=== PATIENT | female | born 1940 | race Caucasian/White ===

== ENCOUNTER → 2016-06-16 16:57 | Outpatient (CLI) | payer MEDICARE, OTHER ==
[2015-04-08 07:12] VITALS: BMI 27.0
[~2016-06-16 16:57] MED LIST: BAYER ASPIRIN325 MG PO; CELEXA10 MG PO; PROTONIX40 MG PO; SYNTHROID100 MCG PO; XARELTO20 MG PO
== END | disposition home or self-care (01) ==
LOC: D.MAMMO 11:15
DX: Z12.31 Encounter for screening mammogram for malignant neoplasm of breast (principal)

== ENCOUNTER 2016-08-26 16:50 | Observation (INO) | payer MEDICARE, OTHER ==
[~2016-08-26] VITALS: Ht 170.2 cm; Wt 72.7 kg
--- NOTE | ~2016-08-26 | EC ---
PATIENT:STEFF MONCADA DATE OF SERVICE: 08/26/16 SEX: F MEDICAL RECORD: [id number] DATE OF : 39 LOCATION:D.MS Hunt223 AGE OF PATIENT: 75 ADMISSION DATE: 08/26/16 REFERRING PHYSICIAN: INTERPRETING PHYSICIAN: SONIA ROSE M.D. ECHOCARDIOGRAM REPORT ECHO CHARGES 4 ECHO COMPLETE CLINICAL DIAGNOSIS: SYNCOPE ECHOCARDIOGRAPHIC MEASUREMENTS (adult normal given) AC root (d.<3.7cm) 3.1 LV Septum d (<1.2 cm> 1.1 Valve Excursion 1.7 LV Septum (systole) 1.4 Left Atria (s.<4.0cm> 3.5 LVPW d(<1.2cm) 1.2 RV (d.<2.3cm) 2.7 LVPW (sytole) 1.6 LV diastole(<5.6CM) 5.7 MV E-F(>70mm/sec) LV systole 3.5 LVOT Diameter 1.6 MV exc.(>10mm) 1.4 Est.ejection fraction (50-75%) Pericardial Effusion N DOPPLER: LVIT A 101 E 89.0 LA RVSP 44 LVOT 122 AOP1/2T Asc. Ao 175 RVOT 87 RA PA 123 AV Gradient Peak 12.25 AV Mean 6.47 AV Area 1.5 MV Gradient Peak 5.28 MV Mean 2.0 MV Area COMMENTS: Physician Gynecologist: Fili ZUNIGA Commercial Insulator:Arin Marques TAPE# PACS DATE OF SERVICE: 08/27/2016 REFERRING PHYSICIAN: Tejas Abreu M.D. INDICATION: Syncope. DESCRIPTION: Left ventricle demonstrates left ventricular hypertrophy. No wall motion abnormalities are seen. Ejection fraction is 60%. Mitral valve is structurally normal. There is trivial regurgitation noted. Left atrium is normal in size. The aortic valve is trileaflet. There is no stenosis or ECHOCARDIOGRAM REPORT [id number] STEFF MONCADA regurgitation seen. Right ventricle is mildly dilated. Tricuspid valve is normal. There is mild to moderate regurgitation noted. Right ventricular systolic pressure is measured at 44 mmHg. There is no pericardial effusion seen. IMPRESSION: 1. Left ventricular hypertrophy with preserved ejection fraction of 60%. 2. Trivial mitral regurgitation. 3. Mild to moderate tricuspid regurgitation. TRANSINT:[id number] Voice Confirmation ID: [id number] DOCUMENT ID: [id number] SONAI ROSE M.D. CC: [id number] DICTATION DATE: 08/27/16 144 PERMIT SPECIALIST: 08/27/16 1659 ADM IN [id number] [place] [address]
[2016-08-26 17:06] LABS: BASOPHILS 0.2 % (0-2); EOSINOPHILS 0.6 % (0-7); HEMATOCRIT 39.2 % (36.0-48.0); HEMOGLOBIN 12.5 g/dL (12-16); IMMATURE GRANULOCYTES 0.4 % (0-5); LYMPHOCYTES 9.9 % (15-50); MCH 28.3 pg (26.0-34.0); MCHC 31.9 g/dL (31.0-37.0); MCV 88.7 fL (80.0-100.0); MEAN PLATELET VOLUME 11.6 fL (7.4-10.4); MONOCYTES 7.2 % (2-11); NEUTROPHILS 81.7 % (40-80); PLATELET COUNT 146 10x3/uL (130-400); RBC 4.42 10x6/uL (4.00-5.40); RDW 15.1 % (11.5-14.5); WBC 8.2 10x3/uL (4.8-10.8)
[2016-08-26 17:27] LABS: ALBUMIN 4.2 g/dL (3.4-5.0); ANION GAP 12.7 mmol/L (8-16); BILIRUBIN - TOTAL 0.37 mg/dL (0.2-1.3); CALCIUM 8.6 mg/dL (8.5-10.1); CREATININE - SERUM 1.6 mg/dL (0.6-1.3); POTASSIUM - SERUM 3.7 mmol/L (3.5-5.1); PROTEIN - SERUM 7.6 g/dL (6.4-8.2)
[2016-08-26 17:33] LABS: INR 1.12 (0.85-1.17); PROTIME 14.3 SECONDS (11.6-15.0)
[2016-08-26 17:34] LABS: APTT 30.8 SECONDS (22.8-39.4)
[2016-08-26 17:52] LABS: CKMB 1.6 U/L (0.0-3.6); CREATINE KINASE 191 UL (21-215)
[2016-08-26 18:06] LABS: TROPONIN-I < 0.017 ng/mL (0.000-0.060)
[2016-08-26] MEDS ORDERED: [UNRECOGNIZED DRUG - REMARK] (21:43)
[2016-08-26] MEDS ORDERED: ZOVIRAX800 MG (21:44)
[2016-08-26] MEDS ORDERED: PRINIVIL20 MG PO (21:44)
[2016-08-26] MEDS ORDERED: CORTISPORIN OTI10 M1 EACH EAR (21:44)
[2016-08-26] MEDS ORDERED: LYRICA75 MG PO (21:46)
[2016-08-26] MEDS ORDERED: FLUTICASONE PRO16 GM (21:47)
[2016-08-26] MEDS ORDERED: AUGMENTIN 500-11 TA1 (21:47)
[2016-08-26] MEDS ORDERED: LEVOTHYROXINE100 MCG (21:48)
[2016-08-26] MEDS ORDERED: CELEXA20 MG (21:49)
[2016-08-26] MEDS ORDERED: MEDROL DOSE PACK4 MG (21:52)
[2016-08-26] MEDS ORDERED: TESSALON PERLE100 MG (21:52)
[2016-08-26] MEDS ORDERED: MOBIC7.5 MG (21:53)
[2016-08-26] MEDS ORDERED: NORVASC10 MG (21:53)
[2016-08-26] MEDS ORDERED: MOBIC7.5 MG PO ×2 (21:54→21:55)
--- NOTE | 2016-08-26 22:14 | NUR ---
RECIEVED TO ROOM 2238.FROM ER VIA WHEELCHAIR, ALERT,ORIENTED X 3. NO DISTRESS NOTED. FAMILY AT BEDSIDE. CL IN REACH.
[2016-08-26 22:33] VITALS: BP 132/52; Ht 170.2 cm; Wt 72.7 kg
--- NOTE | 2016-08-26 22:43 | NUR ---
RN NOTE: ADMISSION ASSESSMENT COMPLETE PER FLOWSHEET. PT RESTING QUIETLY IN SEMI AMBROCIO'S POSITION. FAMILY MEMBER IS AT BEDSIDE. IV FLUIDS STARTED PER ORDER.
[2016-08-27] VITALS (7 sets, daily range): BP systolic 102–127; BP diastolic 34–82
--- NOTE | 2016-08-27 04:49 | NUR ---
UP WIHT ASIST TO BR. NO DISTRESS NOTED.
--- NOTE | 2016-08-27 08:07 | NUR ---
PT AOX4 RESP EVEN AND NONLABORED IV TO LEFT FOREARM PATENT AND INTACT SRX2 BED AT LOWEST SETTING CALL LIGHT WITHIN REACH WILL CONTINUE TO MONITOR PT DENIES NEEDS AT THIS TIME
[2016-08-27 10:33] LABS: BASOPHILS 0.2 % (0-2); HEMATOCRIT 34.4 % (36.0-48.0); IMMATURE GRANULOCYTES 0.2 % (0-5); LYMPHOCYTES 16.6 % (15-50); MCV 87.5 fL (80.0-100.0); MEAN PLATELET VOLUME 11.1 fL (7.4-10.4); PLATELET COUNT 130 10x3/uL (130-400); RBC 3.93 10x6/uL (4.00-5.40); RDW 15.1 % (11.5-14.5)
[2016-08-27 10:34] LABS: WBC 5.7 10x3/uL (4.8-10.8)
[2016-08-27 11:00] LABS: ALBUMIN 3.2 g/dL (3.4-5.0); ANION GAP 9.2 mmol/L (8-16); BILIRUBIN - TOTAL 0.35 mg/dL (0.2-1.3); CALCIUM 7.8 mg/dL (8.5-10.1); CARBON DIOXIDE 29.3 mmol/L (21.0-32.0); CREATININE - SERUM 1.4 mg/dL (0.6-1.3); POTASSIUM - SERUM 3.5 mmol/L (3.5-5.1); PROTEIN - SERUM 6.2 g/dL (6.4-8.2)
--- NOTE | 2016-08-27 19:15 | NUR ---
IV CAME OUT NEW 29 GAUGE IV TO RIGHT HAND WITHOUT DIFFULTY AT THIS TIME
--- NOTE | 2016-08-27 19:55 | NUR ---
PT LYING IN BED AWAKE, ASSESSMENT COMPLETED, NO ACUTE DISTRESS NOTED, DENIES NEEDS AT THIS TIME, SR'S UP, CL IN REACH, WILL MONITOR
--- NOTE | 2016-08-27 23:11 | NUR ---
MEDS GIVEN PER MAR, LIN WELL, DENIES NEEDS, CL IN REACH
--- NOTE | 2016-08-28 01:28 | NUR ---
RESTING WITH EYES CLOSED, RESP WITH EASE, NO ACUTE DISTRESS NOTED, SR'S UP, CL IN REACH
[2016-08-28 03:55] VITALS: BP 125/90
[2016-08-28 06:51] LABS: APPEARANCE CLEAR (CLEAR); BACTERIA FEW /hpf (NONE SEEN); BILIRUBIN NEGATIVE (NEGATIVE); COLOR STRAW (YELLOW); EPITHELIAL CELLS OCC /hpf (0-5); GLUCOSE NEGATIVE (NEGATIVE); KETONE NEGATIVE (NEGATIVE); LEUKOCYTE ESTERASE NEGATIVE (NEGATIVE); NITRITE NEGATIVE (NEGATIVE); PROTEIN NEGATIVE (NEGATIVE); RED CELLS - URINE 0-5 /hpf (0-5); UROBILINOGEN NORMAL (NORMAL); WHITE CELLS - URINE OCC /hpf (0-5)
--- NOTE | 2016-08-28 07:00 | NUR ---
PT REC'D FROM TITO LEWIS. RESTING IN BED AAOX4. NO COMPLAINTS OF PAIN. HAND ROCK LATHER AND FOOT PUMPS STRONG AND EQUAL BILAT. REGULAR HEART RATE AND RHYTHM. +2 PEDAL PULSES. PIV TO R HAND FREE OF REDNESS AND SWELLING. BED LOW, CALL LIGHT IN REACH, DENIES NEEDS. CPOC.
[2016-08-28 07:24] LABS: BASOPHILS 0.5 % (0-2); EOSINOPHILS 2.5 % (0-7); HEMATOCRIT 35.2 % (36.0-48.0); HEMOGLOBIN 11.4 g/dL (12-16); IMMATURE GRANULOCYTES 0.5 % (0-5); LYMPHOCYTES 23.4 % (15-50); MCH 28.5 pg (26.0-34.0); MCHC 32.4 g/dL (31.0-37.0); MEAN PLATELET VOLUME 11.4 fL (7.4-10.4); MONOCYTES 9.3 % (2-11); NEUTROPHILS 63.8 % (40-80); PLATELET COUNT 131 10x3/uL (130-400); RDW 14.9 % (11.5-14.5)
[2016-08-28 08:12] LABS: ALBUMIN 3.2 g/dL (3.4-5.0); ANION GAP 7.6 mmol/L (8-16); BILIRUBIN - TOTAL 0.42 mg/dL (0.2-1.3); CALCIUM 7.9 mg/dL (8.5-10.1); CARBON DIOXIDE 29.1 mmol/L (21.0-32.0); CHOL - HDL RATIO 4.4 ratio (2.3-4.1); CREATININE - SERUM 1.2 mg/dL (0.6-1.3); POTASSIUM - SERUM 3.7 mmol/L (3.5-5.1); PROTEIN - SERUM 6.2 g/dL (6.4-8.2); THYROID STIMULATING HORMONE 9.68 uIU/mL (0.36-3.74)
[2016-08-28 08:53] VITALS: BP 149/65
--- NOTE | 2016-08-28 09:55 | NUR ---
PATIENT ALERT IN HIGH AMBROCIO POSITION WITH FAMILY PRESENT. NO SIGNS OF DISTRESS NOTED. PRIMARY NURSE DAYANA STEPHENSON PRESENT. SIDE RAILS UP X2. BED IN LOW POSITION. CALL LIGHT IN REACH.
--- NOTE | 2016-08-28 09:55 | NUR ---
MORNING MEDS PASSED AT THIS TIME. FAMILY AT BEDSIDE. BED LOW, CALL LIGHT IN REACH, DENIES NEEDS. CPOC.
[2016-08-28 11:04] VITALS: BP 134/74
--- NOTE | 2016-08-28 15:51 | NUR ---
DC INSTRUCTIONS DISCUSSED WITH PT AND DAUGHTER. AWARE OF WHEN F/U APPOINTMENTS NEED TO BE SCHEDULED AND WHO TO CONTACT. PAPERS SIGNED, AND COPY PROVIDED. PIV TO R HAND DC'D WITH CATHETER INTACT. PRESSURE AND DRESSING APPLIED. ESCORTED OUT VIA WC.
== END 2016-08-28 15:52 | disposition home or self-care (01) ==
LOC: D.ER 16:50 → D.MS 20:04 → OBSVTIME 20:04 → D.MS 08-28 15:52
PROVIDERS: Emergency Medicine; Nurse Practitioner Acute Care; ADMIT Emergency Medicine
DX: R55 Syncope and collapse (principal); N17.9 Acute kidney failure, unspecified; F32.9 Major depressive disorder, single episode, unspecified; E03.9 Hypothyroidism, unspecified; I10 Essential (primary) hypertension; D75.9 Disease of blood and blood-forming organs, unspecified; Z86.718 Personal history of other venous thrombosis and embolism; Z79.01 Long term (current) use of anticoagulants

== ENCOUNTER 2016-08-31 05:40 | Emergency (ER) | payer MEDICARE, OTHER ==
[2016-08-26 22:33] VITALS: BMI 25.1
[~2016-08-31 05:40] MED LIST changes: +AUGMENTIN 500-11 TA1; +CELEXA20 MG; +CORTISPORIN OTI10 M1 EACH EAR; +FLUTICASONE PRO16 GM; +LEVOTHYROXINE100 MCG; +LYRICA75 MG PO; +MEDROL DOSE PACK4 MG; +MOBIC7.5 MG; +MOBIC7.5 MG PO; +NORVASC10 MG; +PRINIVIL20 MG PO; +TESSALON PERLE100 MG; +ZOVIRAX800 MG; +[UNRECOGNIZED DRUG - REMARK]
== END 2016-08-31 06:28 | disposition home or self-care (01) ==
LOC: D.ER 05:40
DX: R07.89 Other chest pain (principal); Z91.81 History of falling; K21.9 Gastro-esophageal reflux disease without esophagitis

== ENCOUNTER 2017-03-07 14:12 | Emergency (ER) | payer MEDICARE, OTHER ==
[2016-08-26 22:33] VITALS: BMI 25.1
== END 2017-03-07 16:33 | disposition home or self-care (01) ==
LOC: D.ER 14:12
DX: S89.92XA Unspecified injury of left lower leg, initial encounter (principal); W10.9XXA Fall (on) (from) unspecified stairs and steps, initial encounter; Y93.89 Activity, other specified; Y92.029 Unspecified place in mobile home as the place of occurrence of the external cause; K21.9 Gastro-esophageal reflux disease without esophagitis

== ENCOUNTER → 2018-01-12 12:02 | Outpatient (CLI) | payer MEDICARE, OTHER ==
[2016-08-26 22:33] VITALS: BMI 25.1
== END | disposition home or self-care (01) ==
LOC: D.LABREF 12:02
DX: M17.12 Unilateral primary osteoarthritis, left knee (principal); Z11.8 Encounter for screening for other infectious and parasitic diseases

== ENCOUNTER 2018-02-01 10:00 | Inpatient (IN) | payer MEDICARE, OTHER ==
[~2018-02-01] VITALS: Ht 170.2 cm; Wt 75.0 kg
--- NOTE | ~2018-02-01 | CN ---
PATIENT NAME:STEFF MONCADA MEDICAL RECORD: [id number] : 38 LOCATION:D.MS Hunt2226 ADMIT DATE: 02/07/18 ACCOUNT: [id number] CONSULTING PHYSICIAN: KRUPA CHAUDHARY MD REFERRING PHYSICIAN: HANANE PRATT DO DATE OF CONSULTATION: 02/11/2018 NEPHROLOGY CONSULTATION REASON FOR CONSULTATION: Acute kidney injury with metabolic acidosis. HISTORY OF PRESENT ILLNESS: This is a 77-year-old female, who had knee surgery with Dr. Pratt and her creatinine is increased from 1 to 1.8 to 1.9. PAST MEDICAL HISTORY: Type 2 diabetes, coagulopathy, depression, GERD. PAST SURGICAL HISTORY: Total knee. SOCIAL HISTORY: No reported tobacco, alcohol, or illicit drugs. She is retired. FAMILY HISTORY: Noncontributory. PHYSICAL EXAMINATION: VITAL SIGNS: Blood pressure 152/72, 82 pulse, 98 temperature. GENERAL: She is resting, NAD. HEENT: Normocephalic, atraumatic. Clear nares. Clear throat. NECK: No JVD. CHEST: Regular rhythm. S1 and S2. LUNGS: Grossly clear. ABDOMEN: Nontender. EXTREMITIES: Postoperative trace lower extremity edema. LABORATORY DATA: H&H of 12/10 with a white count of 6000. Sodium 138, potassium 3.6, carbon dioxide 18, BUN 19, creatinine 1.9, calculated osmolality 278. Urinalysis, 1.01 specific gravity. ASSESSMENT: 1. Acute kidney injury. We will go ahead and hold her metformin and lisinopril for today and change her IV fluids from half normal saline to D5W with 3 amps of sodium bicarb. I did ask the nurse to see if she could use sterile water instead of D5W. Check a CPK, uric acid and light chain. We will go ahead with a baseline renal ultrasound since she is having renal insufficiency. 2. Hypertension. We will monitor blood pressure. 3. Status post operation by Dr. Pratt for osteoarthritis of the knee. 4. Diabetes. Continue sliding scale, but hold metformin. We will likely resume lisinopril soon as well. PLAN: Please see orders. TRANSINT:[id number] Voice Confirmation ID: [id number] DOCUMENT ID: [id number] CONSULT REPORT [id number] STEFF MONCAAD DAVID MD at 1313 CC: [id number] DICTATION DATE: 02/11/18 1203 DELINQUENT ACCOUNT CLERK: 02/11/18 1238 ADM IN [facility] [address] [id number]
--- NOTE | ~2018-02-01 | MORECARE ---
CASE MANAGEMENT DISCHARGE SUMMARY PATIENT: STEFF MONCADA UNIT: [id number] ADM DATE: 02/07/18 AGE: 77 : 39 SEX: F ROOM/BED: D.2226 AUTHOR: ROBERT,DOC PHYSICIAN: REFERRING PHYSICIAN: HANANE PRATT DO DATE OF SERVICE: 02/09/18 Discharge Plan Patient Name: STEFF MONCADA Facility: [facility]:[place] : 1940 Planned Disposition: Home Anticipated Discharge Date: Discharge Date: Expected LOS: Initial Reviewer: [email or web address] Initial Review Date: 02/09/2018 Generated: 02/09/18 12:01 pm Comments DCP- Discharge Planning Updated by [email or web address]: Casi Quinonez on 02/09/18 9:[address] Patient Name: STEFF MONCADA Admission Status: Elective Accout number: [id number] Admission Date: 02-07-2018 : 1940 Admission Diagnosis: Attending: HANANE PRATT Current LOS: 2 Anticipated DC Date: Planned Disposition: Home Primary Insurance: MEDICARE A & B Discharge Planning Comments: CM met with patient and daughter in the room to discuss discharge planning. States she lives with her daughter and 2 grand children. States she has been independent with all ADL's and IADL's. States [employer] has already delivered CPM, ice machine, walker and BSC to her house. Wants outpatient therapy at [facility] in [facility] Daughter will transport home. Denies need for additional DME or HHS. Daughter agrees she would like her mother to do OP PT. CM will continue to follow and assist with discharge planning/needs. [employer] [facility] - P [phone] Relay Worker: Casi Quinonez DCPIA - Discharge Planning Initial Assessment Updated by [email or web address]: Casi Quinonez on 02/09/18 10:41 am * Is the patient Alert and Oriented? Yes * How many steps to enter\exit or inside your home? 0/0 * PCP Dr. Swain * Pharmacy [address] * Preadmission Environment Home with Family * ADLs Independent * Equipment Bedside Commode Other Rolling Walker * Other Equipment CPM machine Ice machine * List name and contact numbers for known caregivers / representatives who currently or will assist patient after discharge: Tiny Gandhi - [facility] - [phone] * Verbal permission to speak to the caregivers and representatives has been obtained from the patient. Yes * Community resources currently utilized None * Additional services required to return to the preadmission environment? Yes * Can the patient safely return to the preadmission environment? Yes * Has this patient been hospitalized within the prior 30 days at any hospital? No Last DP export: 02/09/18 9:41 Patient Name: STEFF MONCADA Page 13646 at 1101 All edits/amendments must be made on the electronic document DICTATION DATE: 02/09/181100 SETTLEMENT PROCESSOR: JAYME 02/09/181100 RPT#: [id number] DC DATE: STATUS: ADM IN [facility] [address] [place] [address] END OF REPORT
--- NOTE | ~2018-02-01 | MORECARE ---
CASE MANAGEMENT DISCHARGE SUMMARY PATIENT: STEFF MONCADA UNIT: [id number] ADM DATE: 02/07/18 AGE: 77 : 39 SEX: F ROOM/BED: D.2226 AUTHOR: ROBERT,DOC PHYSICIAN: REFERRING PHYSICIAN: HANANE PRATT DO DATE OF SERVICE: 02/13/18 Discharge Plan Patient Name: STEFF MONCADA Facility: [facility]:[place] : 1940 Planned Disposition: Home Anticipated Discharge Date: Discharge Date: Expected LOS: Initial Reviewer: [email or web address] Initial Review Date: 02/09/2018 Generated: 02/13/18 10:17 am Comments DCP- Discharge Planning Updated by [email or web address]: Casi Quinonez on 02/13/18 8:[address] Spoke with daughter, Tiny Gandhi, about discharge planning on the phone. She is considering inpatient rehab vs SNF and I discussed both with her. Tiny states she would like to discuss it with her mom before deciding. I called Charmaine at [facility] and cancelled her therapy for now. I told her I would call when patient is discharged if she still need OP Therapy. CM will continue to follow and assist with discharge planning/needs. DCP- Discharge Planning Updated by [email or web address]: Casi Quinonez on 02/09/18 10:[address] SPOKE WITH CHARMAINE AT [facility] AND SET UP OUTPATIENT THERAPY FOR TUESDAY AT 2:30 PER PATIENT REQUEST. I HAVE INFORMED PATIENT. CM WILL CONTINUE TO FOLLOW AND ASSIST WITH DISCHARGE PLANNING/NEEDS [address] - PHONE:[phone] FAX:[phone] DCP- Discharge Planning Updated by [email or web address]: Casi Quinonez on 02/09/18 9:[address] Patient Name: STEFF MONCADA Admission Status: Elective Accout number: [id number] Admission Date: 02-07-2018 : 1940 Admission Diagnosis: Attending: HANANE PRATT Current LOS: 2 Anticipated DC Date: Planned Disposition: Home Primary Insurance: MEDICARE A & B Discharge Planning Comments: CM met with patient and daughter in the room to discuss discharge planning. States she lives with her daughter and 2 grand children. States she has been independent with all ADL's and IADL's. States [employer] has already delivered CPM, ice machine, walker and BSC to her house. Wants outpatient therapy at [facility] in [facility] Daughter will transport home. Denies need for additional DME or HHS. Daughter agrees she would like her mother to do OP PT. CM will continue to follow and assist with discharge planning/needs. [facility] - P [phone] Freight Car Builder: Casi Quinonez DCPIA - Discharge Planning Initial Assessment Updated by [email or web address]: Casi Quinonez on 02/09/18 10:41 am * Is the patient Alert and Oriented? Yes * How many steps to enter\exit or inside your home? 0/0 * PCP Dr. Swain * Pharmacy [address] [facility] [address] * Preadmission Environment Home with Family * ADLs Independent * Equipment Bedside Commode Other Rolling Walker * Other Equipment CPM machine Ice machine * List name and contact numbers for known caregivers / representatives who currently or will assist patient after discharge: Tiny OrtegaHiram - [facility] - [phone] * Verbal permission to speak to the caregivers and representatives has been obtained from the patient. Yes * Community resources currently utilized None * Additional services required to return to the preadmission environment? Yes * Can the patient safely return to the preadmission environment? Yes * Has this patient been hospitalized within the prior 30 days at any hospital? No Last DP export: 02/09/18 10:50 Patient Name: STEFF MONCADA Page 33521 at 0917 All edits/amendments must be made on the electronic document DICTATION DATE: 02/13/18915 PACKING LINE OPERATOR: JAYME 02/13/18915 RPT#: [id number] DC DATE: STATUS: ADM IN [facility] [address] [place] [address] END OF REPORT
--- NOTE | ~2018-02-01 | MORECARE ---
CASE MANAGEMENT DISCHARGE SUMMARY PATIENT: STEFF MONCADA UNIT: [id number] ADM DATE: 02/07/18 AGE: 77 : 39 SEX: F ROOM/BED: D.2226 AUTHOR: ROBERT,GENO PHYSICIAN: REFERRING PHYSICIAN: HANANE PRATT DO DATE OF SERVICE: 02/14/18 Discharge Plan Patient Name: STEFF MONCADA Facility: [facility]:[place] : 1940 Planned Disposition: Home Anticipated Discharge Date: Discharge Date: Expected LOS: Initial Reviewer: [email or web address] Initial Review Date: 02/09/2018 Generated: 02/14/18 12:51 pm Comments DCP- Discharge Planning Updated by [email or web address]: Casi Quinonez on 02/14/18 10:[address] Received order for discharge. Martha in inpatient rehab is working on her screen. Patient and daughter in agreement to discharge plan. Anticipate discharge to inpatient rehab this afternoon. CM will continue to follow and assist with discharge planning/needs. DCP- Discharge Planning Updated by [email or web address]: Casi Quinonez on 02/13/18 8:[address] Spoke with daughter, Tiny Gandhi, about discharge planning on the phone. She is considering inpatient rehab vs SNF and I discussed both with her. Tiny states she would like to discuss it with her mom before deciding. I called Charmaine at [facility] and cancelled her therapy for now. I told her I would call when patient is discharged if she still need OP Therapy. CM will continue to follow and assist with discharge planning/needs. DCP- Discharge Planning Updated by [email or web address]: Casi Quinonez on 02/09/18 10:[address] SPOKE WITH CHARMAINE AT [facility] AND SET UP OUTPATIENT THERAPY FOR TUESDAY AT 2:30 PER PATIENT REQUEST. I HAVE INFORMED PATIENT. CM WILL CONTINUE TO FOLLOW AND ASSIST WITH DISCHARGE PLANNING/NEEDS [address] - PHONE:[phone] FAX:[phone] DCP- Discharge Planning Updated by [email or web address]: Casi Quinonez on 02/09/18 9:[address] Patient Name: STEFF MONCADA Admission Status: Elective Accout number: [id number] Admission Date: 02-07-2018 : 1940 Admission Diagnosis: Attending: HANANE PRATT Current LOS: 2 Anticipated DC Date: Planned Disposition: Home Primary Insurance: MEDICARE A & B Discharge Planning Comments: CM met with patient and daughter in the room to discuss discharge planning. States she lives with her daughter and 2 grand children. States she has been independent with all ADL's and IADL's. States [employer] has already delivered CPM, ice machine, walker and BSC to her house. Wants outpatient therapy at [facility] in [place] [facility] ([employer]). Daughter will transport home. Denies need for additional DME or HHS. Daughter agrees she would like her mother to do OP PT. CM will continue to follow and assist with discharge planning/needs. [employer] [facility] - P [phone] Staffing Recruiter: Casi Quinonez DCPIA - Discharge Planning Initial Assessment Updated by [email or web address]: Casi Quinonez on 02/09/18 10:41 am * Is the patient Alert and Oriented? Yes * How many steps to enter\exit or inside your home? 0/0 * PCP Dr. Swain * Pharmacy [facility] [address] * Preadmission Environment Home with Family * ADLs Independent * Equipment Bedside Commode Other Rolling Walker * Other Equipment CPM machine Ice machine * List name and contact numbers for known caregivers / representatives who currently or will assist patient after discharge: Tiny Gandhi - [facility] - [phone] * Verbal permission to speak to the caregivers and representatives has been obtained from the patient. Yes * Community resources currently utilized None * Additional services required to return to the preadmission environment? Yes * Can the patient safely return to the preadmission environment? Yes * Has this patient been hospitalized within the prior 30 days at any hospital? No Coverage Notice Reviewer: [email or web address] - Casi Quinonez Notice Issued Date-Time: 02/14/2018 11:42 Notice Type: IM Discharge Notice Notice Delivered To: Patient Relationship to Patient: Self Email Marketing Processor Name: Delivery Method: HAND - Hand Delivered Ana Days: Prior Verbal Notification: Recipient Understood Notice: Yes Recipient Signature: Yes Med Rec Note Co-signed by Attending: Coverage Notice Comment: IMM explained, signed, copy given, original placed in MR Last DP export: 10/29/18 8:17 Patient Name: STEFF MONCADA Page 47797 at 1151 All edits/amendments must be made on the electronic document DICTATION DATE: 02/14/18 115 DIRECTOR OF EVENT MARKETING: JAYME 02/14/18 115 RPT#: [id number] DC DATE: STATUS: ADM IN [facility] [address] [place] [address] END OF REPORT
--- NOTE | ~2018-02-01 | MORECARE ---
CASE MANAGEMENT DISCHARGE SUMMARY PATIENT: STEFF MONCADA UNIT: [id number] ADM DATE: 02/07/18 AGE: 77 : 39 SEX: F ROOM/BED: D.2226 AUTHOR: ROBERT,DOC PHYSICIAN: REFERRING PHYSICIAN: HANANE PRATT DO DATE OF SERVICE: 02/09/18 Discharge Plan Patient Name: STEFF MONCADA Facility: [facility]:[place] : 1940 Planned Disposition: Home Anticipated Discharge Date: Discharge Date: Expected LOS: Initial Reviewer: [email or web address] Initial Review Date: 02/09/2018 Generated: 02/09/18 12:50 pm Comments DCP- Discharge Planning Updated by [email or web address]: Casi Quinonez on 02/09/18 10:[address] SPOKE WITH CHARMAINE AT [employer] AND SET UP OUTPATIENT THERAPY FOR TUESDAY AT 2:30 PER PATIENT REQUEST. I HAVE INFORMED PATIENT. CM WILL CONTINUE TO FOLLOW AND ASSIST WITH DISCHARGE PLANNING/NEEDS [facility] [employer] [address] - PHONE:[phone] FAX:[phone] DCP- Discharge Planning Updated by [email or web address]: Casi Quinonez on 02/09/18 9:[address] Patient Name: STEFF MONCADA Admission Status: Elective Accout number: [id number] Admission Date: 02-07-2018 : 1940 Admission Diagnosis: Attending: HANANE PRATT Current LOS: 2 Anticipated DC Date: Planned Disposition: Home Primary Insurance: MEDICARE A & B Discharge Planning Comments: CM met with patient and daughter in the room to discuss discharge planning. States she lives with her daughter and 2 grand children. States she has been independent with all ADL's and IADL's. States [employer] has already delivered CPM, ice machine, walker and BSC to her house. Wants outpatient therapy at [facility] in [facility] Daughter will transport home. Denies need for additional DME or HHS. Daughter agrees she would like her mother to do OP PT. CM will continue to follow and assist with discharge planning/needs. [place] - P [phone] Travel Journalist: Casi Quinonez DCPIA - Discharge Planning Initial Assessment Updated by [email or web address]: Casi Quinonez on 02/09/18 10:41 am * Is the patient Alert and Oriented? Yes * How many steps to enter\exit or inside your home? 0/0 * PCP Dr. Swain * Pharmacy [facility] [address] * Preadmission Environment Home with Family * ADLs Independent * Equipment Bedside Commode Other Rolling Walker * Other Equipment CPM machine Ice machine * List name and contact numbers for known caregivers / representatives who currently or will assist patient after discharge: Tiny Gandhi [facility] - [phone] * Verbal permission to speak to the caregivers and representatives has been obtained from the patient. Yes * Community resources currently utilized None * Additional services required to return to the preadmission environment? Yes * Can the patient safely return to the preadmission environment? Yes * Has this patient been hospitalized within the prior 30 days at any hospital? No Last DP export: 02/09/18 10:43 Patient Name: STEFF MONCADA Page 20458 at 1150 All edits/amendments must be made on the electronic document DICTATION DATE: 02/09/18 1150 WIG MAKER: JAYME 02/09/18 1150 RPT#: [id number] DC DATE: STATUS: ADM IN [facility] [address] [place] [address] END OF REPORT
--- NOTE | ~2018-02-01 | MORECARE ---
CASE MANAGEMENT DISCHARGE SUMMARY PATIENT: STEFF MONCADA UNIT: [id number] ADM DATE: 02/07/18 AGE: 77 : 39 SEX: F ROOM/BED: D.2226 AUTHOR: ROBERT,DOC PHYSICIAN: REFERRING PHYSICIAN: HANANE PRATT DO DATE OF SERVICE: 02/09/18 Discharge Plan Patient Name: STEFF MONCADA Facility: [facility]:[place] : 1940 Planned Disposition: Home Anticipated Discharge Date: Discharge Date: Expected LOS: Initial Reviewer: [email or web address] Initial Review Date: 02/09/2018 Generated: 02/09/18 12:43 pm Comments DCP- Discharge Planning Updated by [email or web address]: Casi Quinonez on 02/09/18 9:[address] Patient Name: STEFF MONCADA Admission Status: Elective Accout number: [id number] Admission Date: 02-07-2018 : 1940 Admission Diagnosis: Attending: HANANE PRATT Current LOS: 2 Anticipated DC Date: Planned Disposition: Home Primary Insurance: MEDICARE A & B Discharge Planning Comments: CM met with patient and daughter in the room to discuss discharge planning. States she lives with her daughter and 2 grand children. States she has been independent with all ADL's and IADL's. States [employer] has already delivered CPM, ice machine, walker and BSC to her house. Wants outpatient therapy at [facility] in [facility] Daughter will transport home. Denies need for additional DME or HHS. Daughter agrees she would like her mother to do OP PT. CM will continue to follow and assist with discharge planning/needs. [employer] [facility] - P [phone] Pantograph Machine Operator: Casi Quinonez DCPIA - Discharge Planning Initial Assessment Updated by [email or web address]: Casi Quinonez on 02/09/18 10:41 am * Is the patient Alert and Oriented? Yes * How many steps to enter\exit or inside your home? 0/0 * PCP Dr. Swain * Pharmacy [facility] [address] * Preadmission Environment Home with Family * ADLs Independent * Equipment Bedside Commode Other Rolling Walker * Other Equipment CPM machine Ice machine * List name and contact numbers for known caregivers / representatives who currently or will assist patient after discharge: Tiny Gandhi - [facility] - [phone] * Verbal permission to speak to the caregivers and representatives has been obtained from the patient. Yes * Community resources currently utilized None * Additional services required to return to the preadmission environment? Yes * Can the patient safely return to the preadmission environment? Yes * Has this patient been hospitalized within the prior 30 days at any hospital? No External Providers External Provider: [facility] Next Contact Date: Service Request Date: Service Type: Resolution: Reviewer: Comments: Last DP export: 02/09/18 10:01 Patient Name: STEFF MONCADA Page 08442 at 1143 All edits/amendments must be made on the electronic document DICTATION DATE: 02/09/181141 LEARNING DESIGNER: JAYME 02/09/18 114 RPT#: [id number] DC DATE: STATUS: ADM IN [facility] [address] [place] [address] END OF REPORT
--- NOTE | ~2018-02-01 | MORECARE ---
CASE MANAGEMENT DISCHARGE SUMMARY PATIENT: STEFF MONCADA UNIT: [id number] ADM DATE: 02/07/18 AGE: 77 : 39 SEX: F ROOM/BED: D.2226 AUTHOR: GENO JONES PHYSICIAN: REFERRING PHYSICIAN: HANANE PRATT DO DATE OF SERVICE: 02/09/18 Discharge Plan Patient Name: STEFF MONCADA Facility: [facility]:[place] : 1940 Planned Disposition: Home Anticipated Discharge Date: Discharge Date: Expected LOS: Initial Reviewer: [email or web address] Initial Review Date: 02/09/2018 Generated: 02/09/18 11:41 am DCPIA - Discharge Planning Initial Assessment Updated by [email or web address]: Casi Quinonez on 02/09/18 10:41 am * Is the patient Alert and Oriented? Yes * How many steps to enter\exit or inside your home? 0/0 * PCP Dr. Swain * Pharmacy [facility] [address] * Preadmission Environment Home with Family * ADLs Independent * Equipment Bedside Commode Other Rolling Walker * Other Equipment CPM machine Ice machine * List name and contact numbers for known caregivers / representatives who currently or will assist patient after discharge: Tiny Gandhi [facility] - [phone] * Verbal permission to speak to the caregivers and representatives has been obtained from the patient. Yes * Community resources currently utilized None * Additional services required to return to the preadmission environment? Yes * Can the patient safely return to the preadmission environment? Yes * Has this patient been hospitalized within the prior 30 days at any hospital? No Patient Name: STEFF MONCADA Page [id number] at 1041 All edits/amendments must be made on the electronic document DICTATION DATE: 02/09/18 1041 MECHANICAL ENGINEERING TECHNICIAN: JAYME 02/09/18 1041 RPT#: [id number] DC DATE: STATUS: ADM IN [facility] [address] [place] [address] END OF REPORT
--- NOTE | ~2018-02-01 | MORECARE ---
CASE MANAGEMENT DISCHARGE SUMMARY PATIENT: STEFF MONCADA UNIT: [id number] ADM DATE: 02/07/18 AGE: 77 : 39 SEX: F ROOM/BED: D.2226 AUTHOR: ROBERT,GENO PHYSICIAN: REFERRING PHYSICIAN: HANANE PRATT DO DATE OF SERVICE: 02/15/18 Discharge Plan Patient Name: STEFF MONCADA Facility: [facility]:[place] : 1940 Planned Disposition: Home Anticipated Discharge Date: Discharge Date: 02/14/2018 Expected LOS: Initial Reviewer: [email or web address] Initial Review Date: 02/09/2018 Generated: 02/15/18 10:51 am Comments DCP- Discharge Planning Updated by [email or web address]: Casi Quinonez on 02/14/18 10:[address] Received order for discharge. Martha in inpatient rehab is working on her screen. Patient and daughter in agreement to discharge plan. Anticipate discharge to inpatient rehab this afternoon. CM will continue to follow and assist with discharge planning/needs. DCP- Discharge Planning Updated by [email or web address]: Casi Quinonez on 02/13/18 8:[address] Spoke with daughter, Tiny Gandhi, about discharge planning on the phone. She is considering inpatient rehab vs SNF and I discussed both with her. Tiny states she would like to discuss it with her mom before deciding. I called Charmaine at [facility] and cancelled her therapy for now. I told her I would call when patient is discharged if she still need OP Therapy. CM will continue to follow and assist with discharge planning/needs. DCP- Discharge Planning Updated by [email or web address]: Casi Quinonez on 02/09/18 10:[address] SPOKE WITH [facility] AND SET UP OUTPATIENT THERAPY FOR TUESDAY AT 2:30 PER PATIENT REQUEST. I HAVE INFORMED PATIENT. CM WILL CONTINUE TO FOLLOW AND ASSIST WITH DISCHARGE PLANNING/NEEDS [address] - PHONE:[phone] FAX:[phone] DCP- Discharge Planning Updated by [email or web address]: Casi Quinonez on 02/09/18 9:[address] Patient Name: STEFF MONCADA Admission Status: Elective Accout number: [id number] Admission Date: 02-07-2018 : 1940 Admission Diagnosis: Attending: HANANE PRATT Current LOS: 2 Anticipated DC Date: Planned Disposition: Home Primary Insurance: MEDICARE A & B Discharge Planning Comments: CM met with patient and daughter in the room to discuss discharge planning. States she lives with her daughter and 2 grand children. States she has been independent with all ADL's and IADL's. [facility] [employer] has already delivered CPM, ice machine, walker and BSC to her house. Wants outpatient therapy at [facility] Daughter will transport home. Denies need for additional DME or HHS. Daughter agrees she would like her mother to do OP PT. CM will continue to follow and assist with discharge planning/needs. [facility] - P [phone] Staff [employer] Officer: Casi Quinonez DCPIA - Discharge Planning Initial Assessment Updated by [email or web address]: Casi Quinonez on 02/09/18 10:41 am * Is the patient Alert and Oriented? Yes * How many steps to enter\exit or inside your home? 0/0 * PCP Dr. Swain * Pharmacy [facility] [address] * Preadmission Environment Home with Family * ADLs Independent * Equipment Bedside Commode Other Rolling Walker * Other Equipment CPM machine Ice machine * List name and contact numbers for known caregivers / representatives who currently or will assist patient after discharge: Tiny Gandhi - R - [phone] * Verbal permission to speak to the caregivers and representatives has been obtained from the patient. Yes * Community resources currently utilized None * Additional services required to return to the preadmission environment? Yes * Can the patient safely return to the preadmission environment? Yes * Has this patient been hospitalized within the prior 30 days at any hospital? No Coverage Notice Reviewer: [email or web address] - Casi Quinonez Notice Issued Date-Time: 02/14/2018 11:42 Notice Type: IM Discharge Notice Notice Delivered To: Patient Relationship to Patient: Self Splitter Head Name: Delivery Method: HAND - Hand Delivered Ana Days: Prior Verbal Notification: Recipient Understood Notice: Yes Recipient Signature: Yes Med Rec Note Co-signed by Attending: Coverage Notice Comment: IMM explained, signed, copy given, original placed in MR Last DP export: 02/14/18 10:51 Patient Name: STEFF MONCADA Page [id number] at 0951 All edits/amendments must be made on the electronic document DICTATION DATE: 02/15/18950 EMERGENCY MAN: JAYME 02/15/18950 RPT#: [id number] DC DATE:02/14/18 STATUS: DIS IN [facility] [address] [place] [address] END OF REPORT
--- NOTE | ~2018-02-01 | OP ---
PATIENT NAME: STEFF MONCADA MEDICAL RECORD: [id number] :38 LOCATION:D.MS [address]2226 ADMISSION DATE:02/07/18 SURGEON: CARLOS EDUARDO PRATT DO DATE OF OPERATION: 02/07/2018 PROCEDURE PERFORMED: Left total knee arthroplasty. PREOPERATIVE DIAGNOSIS: Left knee severe end-stage osteoarthritis. POSTOPERATIVE DIAGNOSIS: Left knee severe end-stage osteoarthritis. INDICATION: Ms. Moncada is a 77-year-old female who presented to my office, had been treated for left knee osteoarthritis for quite sometime. She has been getting injections and tried all manners of conservative management, but had failed and was tired of her knee affecting her activities of daily living. I informed her of risks and benefits of the total knee including infection, bleeding, damage to nerve and vessels, need for further surgery, fracture, and she was okay with those risks and wanted to proceed forward. SURGEON: Carlos Eduardo Pratt DO DESCRIPTION OF PROCEDURE: The patient was given a block by anesthesia, taken to the operative suite, laid in the supine position, given Ancef and gentamicin for antibiotics. The left lower extremity was prepped and draped in sterile fashion. Once prepped and draped in sterile fashion, a time-out was performed and everyone was in agreement with correct side, site, patient, and procedure. The skin was then marked and wrapped in Ioban. An incision was began in the midline of the knee down to the capsule itself. The capsule was then incised via the medial parapatellar approach. All bleeding was coagulated during the surgery with Aquamantys and plasma blade. The patella was then everted and milled down to fit a poly size 31. The femoral canal was then entered with the drill and the distal femur cutting block was placed. This femur was then cut. The tibia was exposed and cut. The knee was brought into extension and a lamina telegraph inspector was used to remove the menisci and to coagulate the posterior capsule and the medial and lateral genicular arteries with the Aquamantys. Tibia then had to be recut and the extension block fit well after the second cut. Then, the femur was measured to be 65. A 4-in-1 cutting block was then placed and cut. The tibia had been drilled as well for the implant and the trial was put on the femur. The tibial tray was floated in and cycled. The knee was cycled and rotation was marked. This was removed and the lug holes were drilled to the femur. The tibia was then sized to be 71. It was punched and the tibia was prepared and irrigated. Cement was then mixed. Tibia was then cemented into place, impacting it, and removing excess cement. The femur was then put on and a 10 poly was put in between them. Knee was brought into the extension and the patella was put on. The squeezer was put on while the cement dried. Coagulation was repeated at this time for any bleeders with the Aquamantys. Once the cement had dried, the #10 seemed to be the appropriate size poly and I used a #10 anterior stabilized poly. I put into place and this had a very good fit and the poly locking mechanism was locked into place. The wound was thoroughly irrigated. Vancomycin and tobramycin were then placed into the knee along the capsule. The capsule was then closed with #1 Vicryl, #2 Ethibond, and Stratafix was ran on the capsule as well. Then, Surgicel beads were also placed inside the capsule prior to closure. It was then irrigated on top of the capsule. Tobramycin, vancomycin, and Surgicel beads were placed on top of the capsule. The skin was then closed with 2-0 Vicryl in an inverted interrupted OPERATIVE REPORT [id number] STEFF MONCADA manner. ZipLine was placed on the knee. Adaptic, 4 x 4, ABD, Webril, and a 6-inch Anil were then placed over the knee. QUIRINO hose stocking was placed up to the knee. The patient was awakened and taken to recovery in stable condition. BLOOD LOSS: 150 mL. COMPLICATIONS: None. TRANSINT:[id number] Voice Confirmation ID: [id number] DOCUMENT ID: [id number] CARLOS EDUARDO PRATT DO at 1437 CC: [id number] DICTATION DATE: 02/07/18947 MAIL DELIVERER: 02/07/18 1253 ADM IN [facility] [address] [place] [address]
[~2018-02-01 10:00] MED LIST changes: +CALTRATE+D3 PL1 EACH PO; +COUMADIN3 MG PO; -LEVOTHYROXINE100 MCG; +LEVOTHYROXINE100 MCG PO; +RANITIDINE HCL150 M1 PO; +VITAMIN B-122500 MCG PO
[2018-02-01 12:17] LABS: ANION GAP 13.1 mmol/L (8-16); CALCIUM 9.2 mg/dL (8.5-10.1); CARBON DIOXIDE 28.8 mmol/L (21.0-32.0); CREATININE - SERUM 1.2 mg/dL (0.6-1.3); POTASSIUM - SERUM 3.9 mmol/L (3.5-5.1)
[2018-02-01 12:18] LABS: APTT 33.8 SECONDS (22.8-39.4); INR 1.66 (0.85-1.17); PROTIME 19.1 SECONDS (11.6-15.0)
[2018-02-01 12:26] LABS: BASOPHILS 0.4 % (0-2); EOSINOPHILS 0.9 % (0-7); HEMATOCRIT 40.7 % (36.0-48.0); HEMOGLOBIN 13.2 g/dL (12-16); IMMATURE GRANULOCYTES 0.2 % (0-5); LYMPHOCYTES 19.7 % (15-50); MCH 27.7 pg (26.0-34.0); MCHC 32.4 g/dL (31.0-37.0); MCV 85.3 fL (80.0-100.0); MEAN PLATELET VOLUME 11.7 fL (7.4-10.4); MONOCYTES 8.9 % (2-11); NEUTROPHILS 69.9 % (40-80); RBC 4.77 10x6/uL (4.00-5.40); RDW 14.5 % (11.5-14.5); WBC 5.4 10x3/uL (4.8-10.8)
[2018-02-01 12:28] LABS: PLATELET COUNT 169 10x3/uL (130-400)
[2018-02-01 12:38] LABS: APPEARANCE CLEAR (CLEAR); BACTERIA FEW /hpf (NONE SEEN); BILIRUBIN NEGATIVE (NEGATIVE); COLOR YELLOW (YELLOW); EPITHELIAL CELLS 0-5 /hpf (0-5); GLUCOSE NEGATIVE (NEGATIVE); KETONE NEGATIVE (NEGATIVE); NITRITE NEGATIVE (NEGATIVE); PROTEIN NEGATIVE (NEGATIVE); RED CELLS - URINE 0-5 /hpf (0-5); SPECIFIC GRAVITY 1.015 (1.005-1.020); UROBILINOGEN NORMAL (NORMAL); WHITE CELLS - URINE 0-5 /hpf (0-5)
[2018-02-07] MEDS ORDERED: LOVENOX80 MG/0.8 (06:08)
[2018-02-07 06:25] VITALS: BP 145/73; BMI 27.4
[2018-02-07 07:29] LABS: APTT 33.7 SECONDS (22.8-39.4); INR 1.02 (0.85-1.17)
[2018-02-07 10:37] VITALS: BP 125/50
[2018-02-07 10:42] VITALS: BP 125/50; Ht 170.2 cm; Wt 75.0 kg
[2018-02-07 17:49] VITALS: BP 126/60
[2018-02-07 20:00] VITALS: BP 118/63
[2018-02-08 05:51] LABS: BASOPHILS 0.1 % (0-2); EOSINOPHILS 0.1 % (0-7); HEMATOCRIT 32.3 % (36.0-48.0); HEMOGLOBIN 10.2 g/dL (12-16); IMMATURE GRANULOCYTES 0.3 % (0-5); MCH 27.1 pg (26.0-34.0); MCHC 31.6 g/dL (31.0-37.0); MCV 85.9 fL (80.0-100.0); MEAN PLATELET VOLUME 11.8 fL (7.4-10.4); MONOCYTES 10.8 % (2-11); NEUTROPHILS 77.7 % (40-80); RBC 3.76 10x6/uL (4.00-5.40); RDW 14.7 % (11.5-14.5); WBC 7.4 10x3/uL (4.8-10.8)
[2018-02-08 05:56] LABS: ANION GAP 15.1 mmol/L (8-16); CALCIUM 7.9 mg/dL (8.5-10.1); CARBON DIOXIDE 24.9 mmol/L (21.0-32.0); CREATININE - SERUM 1.5 mg/dL (0.6-1.3)
[2018-02-08 06:00] VITALS: BP 109/48
[2018-02-08 06:25] LABS: PLATELET COUNT 124 10x3/uL (130-400)
[2018-02-08 09:01] VITALS: BP 125/75
[2018-02-08 12:05] VITALS: BP 109/47
[2018-02-08 16:50] VITALS: BP 112/56
[2018-02-08 20:00] VITALS: BP 143/67
[2018-02-09 04:00] VITALS: BP 167/69
[2018-02-09 05:54] LABS: BASOPHILS 0.3 % (0-2); EOSINOPHILS 0.8 % (0-7); HEMATOCRIT 30.8 % (36.0-48.0); HEMOGLOBIN 9.8 g/dL (12-16); IMMATURE GRANULOCYTES 0.4 % (0-5); LYMPHOCYTES 10.1 % (15-50); MCH 27.1 pg (26.0-34.0); MCHC 31.8 g/dL (31.0-37.0); MCV 85.3 fL (80.0-100.0); MEAN PLATELET VOLUME 11.7 fL (7.4-10.4); MONOCYTES 11.8 % (2-11); NEUTROPHILS 76.6 % (40-80); PLATELET COUNT 118 10x3/uL (130-400); RBC 3.61 10x6/uL (4.00-5.40); RDW 14.9 % (11.5-14.5); WBC 7.3 10x3/uL (4.8-10.8)
[2018-02-09 06:28] LABS: ANION GAP 14.8 mmol/L (8-16); CALCIUM 7.5 mg/dL (8.5-10.1); CARBON DIOXIDE 24.3 mmol/L (21.0-32.0); CREATININE - SERUM 3.2 mg/dL (0.6-1.3); POTASSIUM - SERUM 4.1 mmol/L (3.5-5.1)
[2018-02-09 09:45] VITALS: BP 172/72
[2018-02-09 13:20] VITALS: BP 158/78
[2018-02-09 17:07] VITALS: BP 137/68
[2018-02-09 20:00] VITALS: BP 143/67
[2018-02-09 23:12] LABS: APPEARANCE HAZY (CLEAR); BILIRUBIN NEGATIVE (NEGATIVE); COLOR YELLOW (YELLOW); GLUCOSE NEGATIVE (NEGATIVE); KETONE NEGATIVE (NEGATIVE); NITRITE NEGATIVE (NEGATIVE); PROTEIN TRACE mg/dL (NEGATIVE); UROBILINOGEN NORMAL (NORMAL)
[2018-02-09 23:19] LABS: AMORPHOUS SEDIMENT >1+ /lpf (NONE SEEN); BACTERIA FEW /hpf (NONE SEEN); EPITHELIAL CELLS OCC /hpf (0-5); HYALINE CAST OCC /lpf (NONE SEEN); RED CELLS - URINE OCC /hpf (0-5); WHITE CELLS - URINE OCC /hpf (0-5)
[2018-02-10] VITALS: BP 148/61
[2018-02-10 04:00] VITALS: BP 169/75
[2018-02-10 07:41] LABS: HEMATOCRIT 30.3 % (36.0-48.0); HEMOGLOBIN 9.9 g/dL (12-16); LYMPHOCYTES 10.2 % (15-50); MCH 27.3 pg (26.0-34.0); MCHC 32.7 g/dL (31.0-37.0); MCV 83.5 fL (80.0-100.0); MEAN PLATELET VOLUME 11.3 fL (7.4-10.4); NEUTROPHILS 76.9 % (40-80); PLATELET COUNT 109 10x3/uL (130-400); RBC 3.63 10x6/uL (4.00-5.40); RDW 14.1 % (11.5-14.5)
[2018-02-10 07:56] LABS: INR 1.15 (0.85-1.17); PROTIME 14.3 SECONDS (11.6-15.0)
[2018-02-10 07:57] LABS: CALCIUM 7.6 mg/dL (8.5-10.1)
[2018-02-10 08:00] LABS: CREATININE - SERUM 4.2 mg/dL (0.6-1.3)
[2018-02-10 08:54] VITALS: BP 182/77
[2018-02-10 12:37] VITALS: BP 161/74
[2018-02-10 17:22] VITALS: BP 124/64
[2018-02-10 20:00] VITALS: BP 167/72
[2018-02-11 04:00] VITALS: BP 160/84
[2018-02-11 05:41] LABS: BASOPHILS 0.2 % (0-2); EOSINOPHILS 1.8 % (0-7); HEMATOCRIT 31.2 % (36.0-48.0); IMMATURE GRANULOCYTES 0.2 % (0-5); LYMPHOCYTES 11.5 % (15-50); MCH 26.8 pg (26.0-34.0); MCHC 32.1 g/dL (31.0-37.0); MCV 83.6 fL (80.0-100.0); MEAN PLATELET VOLUME 11.4 fL (7.4-10.4); MONOCYTES 11.1 % (2-11); NEUTROPHILS 75.2 % (40-80); RBC 3.73 10x6/uL (4.00-5.40); RDW 14.9 % (11.5-14.5); WBC 5.5 10x3/uL (4.8-10.8)
[2018-02-11 05:44] LABS: PLATELET COUNT 142 10x3/uL (130-400)
[2018-02-11 05:44] LABS: ANION GAP 15.3 mmol/L (8-16); CALCIUM 8.1 mg/dL (8.5-10.1); CARBON DIOXIDE 25.6 mmol/L (21.0-32.0); CREATININE - SERUM 4.4 mg/dL (0.6-1.3); POTASSIUM - SERUM 3.9 mmol/L (3.5-5.1)
[2018-02-11 07:51] VITALS: BP 166/76
[2018-02-11 12:55] VITALS: BP 165/77
[2018-02-11 20:00] VITALS: BP 139/63
[2018-02-12 04:00] VITALS: BP 164/66
[2018-02-12 04:55] LABS: BASOPHILS 0.4 % (0-2); EOSINOPHILS 2.8 % (0-7); HEMATOCRIT 31.2 % (36.0-48.0); HEMOGLOBIN 10.1 g/dL (12-16); IMMATURE GRANULOCYTES 0.6 % (0-5); LYMPHOCYTES 14.5 % (15-50); MCH 27.1 pg (26.0-34.0); MCHC 32.4 g/dL (31.0-37.0); MCV 83.6 fL (80.0-100.0); MEAN PLATELET VOLUME 11.4 fL (7.4-10.4); MONOCYTES 14.9 % (2-11); NEUTROPHILS 66.8 % (40-80); PLATELET COUNT 162 10x3/uL (130-400); RBC 3.73 10x6/uL (4.00-5.40); RDW 14.5 % (11.5-14.5); WBC 5.3 10x3/uL (4.8-10.8)
[2018-02-12 05:03] LABS: ANION GAP 15.7 mmol/L (8-16); CALCIUM 8.5 mg/dL (8.5-10.1); CREATININE - SERUM 4.3 mg/dL (0.6-1.3); POTASSIUM - SERUM 3.7 mmol/L (3.5-5.1)
[2018-02-12 08:34] VITALS: BP 172/79
[2018-02-12 11:31] VITALS: BP 165/83
[2018-02-12 15:06] LABS: APPEARANCE CLEAR (CLEAR); BILIRUBIN NEGATIVE (NEGATIVE); COLOR STRAW (YELLOW); GLUCOSE NEGATIVE (NEGATIVE); KETONE NEGATIVE (NEGATIVE); NITRITE NEGATIVE (NEGATIVE); PROTEIN 1+ mg/dL (NEGATIVE); UROBILINOGEN NORMAL (NORMAL)
[2018-02-12 15:07] LABS: BACTERIA MODERATE /hpf (NONE SEEN); EPITHELIAL CELLS 0-5 /hpf (0-5); RED CELLS - URINE 0-5 /hpf (0-5); WHITE CELLS - URINE 0-5 /hpf (0-5)
[2018-02-12 21:47] VITALS: BP 172/81
[2018-02-13 05:51] LABS: BASOPHILS 0.2 % (0-2); EOSINOPHILS 2.9 % (0-7); HEMOGLOBIN 10.1 g/dL (12-16); IMMATURE GRANULOCYTES 0.8 % (0-5); LYMPHOCYTES 14.9 % (15-50); MCH 27.2 pg (26.0-34.0); MCHC 32.6 g/dL (31.0-37.0); MCV 83.6 fL (80.0-100.0); MEAN PLATELET VOLUME 11.3 fL (7.4-10.4); MONOCYTES 14.5 % (2-11); NEUTROPHILS 66.7 % (40-80); PLATELET COUNT 168 10x3/uL (130-400); RBC 3.71 10x6/uL (4.00-5.40); RDW 14.6 % (11.5-14.5); WBC 4.8 10x3/uL (4.8-10.8)
[2018-02-13 06:15] LABS: ANION GAP 13.4 mmol/L (8-16); CALCIUM 8.1 mg/dL (8.5-10.1); CARBON DIOXIDE 26.9 mmol/L (21.0-32.0); POTASSIUM - SERUM 3.3 mmol/L (3.5-5.1)
[2018-02-13 06:30] VITALS: BP 165/81
[2018-02-13 08:50] VITALS: BP 172/91
[2018-02-13 09:11] LABS: INR 1.21 (0.85-1.17); PROTIME 14.8 SECONDS (11.6-15.0)
[2018-02-13 12:00] VITALS: BP 142/74
[2018-02-13 16:17] VITALS: BP 126/70
[2018-02-13 20:00] VITALS: BP 145/79
[2018-02-14 05:07] VITALS: BP 173/81
[2018-02-14] MEDS ORDERED: FLOMAX0.4 MG PO (07:57)
[2018-02-14] MEDS ORDERED: HYDROCODON-ACE1 EAC7 PO (07:58)
[2018-02-14] MEDS ORDERED: NORVASC5 MG PO (07:58)
[2018-02-14] MEDS ORDERED: LOVENOX40 MG/0.4 SC (07:58)
[2018-02-14] MEDS ORDERED: COREG 3.1253.125 MG PO (07:58)
[2018-02-14] MEDS ORDERED: NORCO-10 PO (07:58)
[2018-02-14] MEDS ORDERED: ULTRAM50 MG PO (07:59)
[2018-02-14 08:32] LABS: CALCIUM 8.1 mg/dL (8.5-10.1); CARBON DIOXIDE 28.7 mmol/L (21.0-32.0); CREATININE - SERUM 3.8 mg/dL (0.6-1.3); POTASSIUM - SERUM 3.7 mmol/L (3.5-5.1)
[2018-02-14 09:57] VITALS: BP 145/74
[2018-02-14 13:58] VITALS: BP 137/87
== END 2018-02-14 14:44 | DRG 470 ==
LOC: D.SDCHOLD 02-07 05:00 → D.MS 02-07 05:00 → D.SDCHOLD 02-07 07:30 → D.MS 02-07 10:26
PROVIDERS: Internal Medicine Nephrology; Orthopaedic Surgery
PROC: 0SRD0J9 Replacement of Left Knee Joint with Synthetic Substitute, Cemented, Open Approach (ICD-10-PCS; principal; 2018-02-07 07:30)
DX: M17.12 Unilateral primary osteoarthritis, left knee (principal); D68.9 Coagulation defect, unspecified; N17.9 Acute kidney failure, unspecified; E87.2 Acidosis; E11.9 Type 2 diabetes mellitus without complications; K21.9 Gastro-esophageal reflux disease without esophagitis; I10 Essential (primary) hypertension; E03.9 Hypothyroidism, unspecified; Z79.01 Long term (current) use of anticoagulants; F32.9 Major depressive disorder, single episode, unspecified; N32.0 Bladder-neck obstruction

== ENCOUNTER 2018-02-14 14:53 | Inpatient (IN) | payer MEDICARE, OTHER ==
[~2018-02-14] VITALS: Ht 170.2 cm; Wt 74.8 kg
--- NOTE | ~2018-02-14 | RHP ---
PATIENT: STEFF MONCADA MEDICAL RECORD: [id number] ACCOUNT: [id number] LOCATION:[facility] : [birth year] ADMISSION DATE: 02/14/18 REHABILITATION HISTORY AND PHYSICAL EXAMINATION POST ADMISSION PHYSICIAN EXAMINATION ADMITTING DIAGNOSIS: Debility secondary to acute kidney injury. HISTORY OF PRESENT ILLNESS: The patient admitted to the inpatient rehabilitation for debility secondary to some postop complications of a left total knee and acute kidney injury with blood loss anemia. She is a 77-year-old female patient admitted secondary to a left total knee and developed some postop complications with elevated BUN and creatinine, metabolic acidosis. She had been followed by nephrology during her stay and they planned on following her also here during her acute inpatient stay at the rehab. She had blood loss anemia, history of clotting issues, she has got an IVC filter. Her INR has not been therapeutic. She has been on warfarin and Lovenox. She is also requiring some oxygen at this time. She has impaired mobility, pain, debility, self-care deficits. These are all barriers to her discharge home. She has not responded to conservative therapy and her ADLs are severely impaired and she underwent a left total knee on 02/07/2018. She had been living at home with her family, was independent with her mobility and ADLs. She is currently max assist for ADLs, mod to max assist for mobility. She and her family planned for her to return home at her prior level of function or as close as possible. COMORBIDITIES: Include acute kidney injury, bladder outlet obstruction, arthritis, long-term use of anticoagulant, blood disorder, IVC filter, depression, diabetes, hypothyroidism, and status post total knee arthroplasty. PAST MEDICAL HISTORY: Significant for type 2 diabetes, coagulopathy, depression, gastroesophageal reflux disease, thyroid problems, and hypertension. PAST SURGICAL HISTORY: Includes a total knee, gallbladder surgery, cataracts, hysterectomy, ganglion cyst, IVC filter, and tonsillectomy and adenoidectomy. ALLERGIES: SULFA. CURRENT MEDICATIONS: Include Synthroid 100 mcg daily, warfarin 1 mg daily, Flomax 0.4 mg daily, enoxaparin 40 mg subQ daily, vitamin B12 2500 mcg daily, Celexa 20 mg daily, calcium carbonate 500 mg daily, tramadol 50 mg q.4 hours p.r.n., Pepcid 20 mg b.i.d., [place] 10/325 one tab q.4-6 hours as needed for pain, Coreg 3.125 mg b.i.d. with meals, amlodipine 5 mg q.h.s., and MiraLax 17 grams in 8 ounces of water daily. HABITS: No alcohol or tobacco use. FAMILY HISTORY: Noncontributory. SOCIAL HISTORY: The patient hopes to return back home and get back to her prior level of functioning. REVIEW OF SYSTEMS: GENERAL: Does complain of weakness and fatigue. HEENT: Denies cold, cough, or congestion. CARDIOVASCULAR: Denies chest pain. HISTORY AND PHYSICAL [id number] STEFF MONCADA PHYSICAL EXAMINATION: VITAL SIGNS: Stable, afebrile. GENERAL: An elderly female, in no acute distress, alert upon exam. HEENT: Normocephalic and atraumatic. Mucosa moist. NECK: Supple. No lymphadenopathy. LUNGS: Clear at this time. HEART: Irregular rate and rhythm. ABDOMEN: Benign. EXTREMITIES: No clubbing, cyanosis, or edema. Her postop swelling appears normal. NEUROLOGIC: She does have noted weakness. LABORATORY DATA: White count is 5.2, H&H of 10 and 33, and platelet count was noted to be 205. Her INR is 1.29. Sodium 142, potassium 3.8, BUN and creatinine of 44 and 3.4, and blood sugar is noted to be 116. ASSESSMENT: This is a 77-year-old female patient admitted to rehab with a working diagnosis of debility secondary to acute kidney injury and total knee arthroplasty. The patient has potential to make improvement. We instituted the following multidisciplinary therapies including, but not limited to physical, occupational, respiratory, speech, nutritional services, prosthetics and orthotics. Given her complex medical condition and risk for more complications, rehabilitation services cannot be provided at a low level of care such as assisted facility. PLAN: 1. Admit to [facility] for intensive inpatient therapy to include the following disciplines: A. Physical therapy to improve gait, all transfer skills and bed mobility to a modified independent level. B. Occupational therapy to a modified independent level. C. Case management to assist with discharge planning and placement options. D. Nutrition to assist with nutritional needs. E. Rehabilitation nursing to assist in monitoring the patient's underlying medical conditions and to assist with any type of bowel or bladder management. 2. The patient's current medication and medical care will be continued. 3. The patient will be placed on standard fall precautions. 4. The patient's estimated length of stay is approximately 7-10 days. 5. We are going to go ahead and adjust her Coumadin levels to get her back up to a therapeutic INR. We discontinued her Lovenox when this is achieved and appreciate renal seeing her during her stay. TRANSINT:[id number] Voice Confirmation ID: [id number] DOCUMENT ID: [id number] REGLA notes whether there has been none or any medical/functional change since admission: - No changes since prescreen. REGLA attests patient continues to be appropriate for IRF: - Continues to be appropriate. HISTORY AND PHYSICAL [id number] STEFF MONCADA SCOTT MD at 1818 CC: [id number] DICTATION DATE: 02/15/1839 CHIP SILO TENDER: 02/15/18 0905 ADM IN [place] [id number] [place] [id number]
--- NOTE | ~2018-02-14 | DS ---
PATIENT:STEFF MONCADA :[birth year] MEDICAL RECORD: [id number] DISCHARGE SUMMARY ADMISSION DATE: 02/14/18 DISCHARGE DATE: 02/23/18 This is a discharge dated 02/23/2018 from inpatient rehabilitation. PRIMARY DIAGNOSIS: Decreased functional ability and ability to provide activities of daily living, status post left total knee arthroplasty with postop complications. SECONDARY DIAGNOSES: 1. Acute kidney injury on chronic kidney disease. 2. Acute blood loss anemia. 3. Arthritis. 4. Osteoarthritis of the left knee. 5. Depression. 6. Diabetes. 7. Hypothyroidism. 8. Coagulopathy. 9. Gastroesophageal reflux disease. 10. Hypertension. CONSULTANTS FOLLOWING THIS HOSPITALIZATION: Nephrology with Dr. Joy. HOSPITAL COURSE: Full H&P is located elsewhere on the chart on this 77-year-old female, who was admitted to inpatient rehab for physical therapy and occupational therapy to improve gait, transfer skills, bed mobility, and activities of daily living to a modified independent level. She was evaluated by PT and OT and their plans of care were followed. She required long term care for observation and assessment, medication administration, as well as wound care and monitoring of surgical incision. She remained on appropriate home medications. Fingerstick blood sugars were monitored throughout her hospital stay with appropriate adjustment in medications as needed. She was followed by nephrology during her hospital stay with monitoring of renal function with creatinine of 1.9 at the time of discharge. She was cooperative with therapies, progressing towards goals. Case management was involved for discharge planning. She was considered stable for discharge on 02/23/2018. DISCHARGE MEDICATIONS: As per discharge medication reconciliation. DISCHARGE DISPOSITION: The patient is discharged home. She will continue her current diet and level of activity and will follow up with primary care and specialists as directed. She was given a written prescription for outpatient therapy. At least 30 minutes was spent in this discharge activity. TRANSINT:[id number] Voice Confirmation ID: [id number] DOCUMENT ID: [id number] Dictated By: MOISES CAM I have interviewed/examined the above patient and agree with these documented findings. DISCHARGE SUMMARY REPORT [id number] STEFF MONCADA SCOTT MD CC: [id number] DICTATION DATE: 03/19/18 1538 CONCERT OR LECTURE HALL MANAGER: 03/20/18 0815 DIS IN 02/23/18 [place] [address]
[~2018-02-14 14:53] MED LIST changes: +COREG 3.1253.125 MG PO; +FLOMAX0.4 MG PO; +HYDROCODON-ACE1 EAC7 PO; +LOVENOX40 MG/0.4 SC; +LOVENOX80 MG/0.8; +NORCO-10 PO; +NORVASC5 MG PO; +ULTRAM50 MG PO
[2018-02-14 14:56] VITALS: BP 142/77; BMI 25.9
[2018-02-14 19:00] VITALS: BP 146/75
[2018-02-15 05:38] LABS: INR 1.29 (0.85-1.17); PROTIME 15.6 SECONDS (11.6-15.0)
[2018-02-15 05:39] LABS: BASOPHILS 0.4 % (0-2); EOSINOPHILS 2.5 % (0-7); HEMATOCRIT 32.8 % (36.0-48.0); HEMOGLOBIN 10.4 g/dL (12-16); IMMATURE GRANULOCYTES 0.4 % (0-5); LYMPHOCYTES 15.2 % (15-50); MCH 26.9 pg (26.0-34.0); MCHC 31.7 g/dL (31.0-37.0); MEAN PLATELET VOLUME 11.4 fL (7.4-10.4); MONOCYTES 13.8 % (2-11); NEUTROPHILS 67.7 % (40-80); RBC 3.86 10x6/uL (4.00-5.40); RDW 14.5 % (11.5-14.5); WBC 5.2 10x3/uL (4.8-10.8)
[2018-02-15 05:40] LABS: ANION GAP 14.7 mmol/L (8-16); CALCIUM 8.4 mg/dL (8.5-10.1); CARBON DIOXIDE 28.1 mmol/L (21.0-32.0); CREATININE - SERUM 3.4 mg/dL (0.6-1.3); POTASSIUM - SERUM 3.8 mmol/L (3.5-5.1)
[2018-02-15 05:51] LABS: PLATELET COUNT 205 10x3/uL (130-400)
[2018-02-15 07:53] VITALS: BP 133/74
[2018-02-15 12:59] VITALS: Ht 170.2 cm; Wt 74.8 kg
[2018-02-15 19:00] VITALS: BP 147/69
[2018-02-16 06:50] LABS: INR 1.26 (0.85-1.17); PROTIME 15.4 SECONDS (11.6-15.0)
[2018-02-16 08:00] VITALS: BP 148/74
[2018-02-16 19:00] VITALS: BP 128/62
[2018-02-17 08:00] VITALS: BP 137/61
[2018-02-17 08:11] LABS: BASOPHILS 0.4 % (0-2); EOSINOPHILS 2.6 % (0-7); HEMATOCRIT 31.2 % (36.0-48.0); HEMOGLOBIN 9.9 g/dL (12-16); IMMATURE GRANULOCYTES 0.8 % (0-5); LYMPHOCYTES 20.4 % (15-50); MCH 27.1 pg (26.0-34.0); MCHC 31.7 g/dL (31.0-37.0); MCV 85.5 fL (80.0-100.0); MEAN PLATELET VOLUME 11.1 fL (7.4-10.4); MONOCYTES 9.7 % (2-11); NEUTROPHILS 66.1 % (40-80); PLATELET COUNT 211 10x3/uL (130-400); RBC 3.65 10x6/uL (4.00-5.40); RDW 14.3 % (11.5-14.5)
[2018-02-17 08:20] LABS: INR 1.16 (0.85-1.17); PROTIME 14.4 SECONDS (11.6-15.0)
[2018-02-17 08:24] LABS: ANION GAP 9.4 mmol/L (8-16); CALCIUM 7.9 mg/dL (8.5-10.1); CARBON DIOXIDE 31.1 mmol/L (21.0-32.0); CREATININE - SERUM 2.8 mg/dL (0.6-1.3); POTASSIUM - SERUM 3.5 mmol/L (3.5-5.1)
[2018-02-18 05:42] VITALS: BP 150/61
[2018-02-18 08:13] LABS: INR 1.18 (0.85-1.17); PROTIME 14.6 SECONDS (11.6-15.0)
[2018-02-18 13:55] VITALS: BP 134/70
[2018-02-18 19:30] VITALS: BP 116/57
[2018-02-19 06:56] LABS: INR 1.21 (0.85-1.17); PROTIME 14.8 SECONDS (11.6-15.0)
[2018-02-19 10:39] VITALS: BP 141/65
[2018-02-20 01:32] VITALS: BP 144/74
[2018-02-20 08:00] VITALS: BP 129/69
[2018-02-20 08:41] LABS: BASOPHILS 0.6 % (0-2); EOSINOPHILS 1.4 % (0-7); HEMATOCRIT 33.9 % (36.0-48.0); HEMOGLOBIN 10.9 g/dL (12-16); IMMATURE GRANULOCYTES 0.8 % (0-5); LYMPHOCYTES 19.6 % (15-50); MCH 27.3 pg (26.0-34.0); MCHC 32.2 g/dL (31.0-37.0); MCV 84.8 fL (80.0-100.0); MEAN PLATELET VOLUME 11.8 fL (7.4-10.4); MONOCYTES 7.3 % (2-11); NEUTROPHILS 70.3 % (40-80); PLATELET COUNT 226 10x3/uL (130-400); RDW 14.1 % (11.5-14.5); WBC 6.3 10x3/uL (4.8-10.8)
[2018-02-20 08:42] LABS: INR 1.2 (0.85-1.17); PROTIME 14.7 SECONDS (11.6-15.0)
[2018-02-20 08:44] LABS: ANION GAP 13.1 mmol/L (8-16); CALCIUM 8.6 mg/dL (8.5-10.1); CARBON DIOXIDE 28.8 mmol/L (21.0-32.0); CREATININE - SERUM 2.2 mg/dL (0.6-1.3); POTASSIUM - SERUM 3.9 mmol/L (3.5-5.1)
[2018-02-20 21:19] VITALS: BP 116/54
[2018-02-21 08:26] VITALS: BP 133/64
[2018-02-21 15:24] LABS: INR 1.27 (0.85-1.17); PROTIME 15.5 SECONDS (11.6-15.0)
[2018-02-21 19:00] VITALS: BP 110/47
[2018-02-22 06:47] LABS: BASOPHILS 0.4 % (0-2); EOSINOPHILS 0.9 % (0-7); HEMATOCRIT 30.6 % (36.0-48.0); HEMOGLOBIN 9.7 g/dL (12-16); IMMATURE GRANULOCYTES 0.4 % (0-5); LYMPHOCYTES 23.4 % (15-50); MCH 26.9 pg (26.0-34.0); MCHC 31.7 g/dL (31.0-37.0); MEAN PLATELET VOLUME 10.7 fL (7.4-10.4); MONOCYTES 8.2 % (2-11); NEUTROPHILS 66.7 % (40-80); PLATELET COUNT 208 10x3/uL (130-400); RDW 14.3 % (11.5-14.5); WBC 5.4 10x3/uL (4.8-10.8)
[2018-02-22 06:57] LABS: INR 1.3 (0.85-1.17); PROTIME 15.7 SECONDS (11.6-15.0)
[2018-02-22 07:06] LABS: ANION GAP 13.9 mmol/L (8-16); CALCIUM 8.3 mg/dL (8.5-10.1); CARBON DIOXIDE 26.8 mmol/L (21.0-32.0); CREATININE - SERUM 1.9 mg/dL (0.6-1.3); POTASSIUM - SERUM 3.7 mmol/L (3.5-5.1)
[2018-02-22 08:00] VITALS: BP 137/61
[2018-02-22 19:00] VITALS: BP 106/36
[2018-02-23 07:09] LABS: INR 1.34 (0.85-1.17); PROTIME 16.1 SECONDS (11.6-15.0)
[2018-02-23 08:00] VITALS: BP 144/73
[2018-02-23] MEDS ORDERED: COUMADIN5 MG PO (08:16)
[2018-02-23] MEDS ORDERED: NORCO-10 PO (08:18)
== END 2018-02-23 12:00 | disposition home or self-care (01) | DRG 948 ==
LOC: D.REHAB 14:53
PROVIDERS: Emergency Medicine; Internal Medicine Nephrology
DX: R53.81 Other malaise (principal); N17.9 Acute kidney failure, unspecified; N32.0 Bladder-neck obstruction; Z79.01 Long term (current) use of anticoagulants; M19.90 Unspecified osteoarthritis, unspecified site; F32.9 Major depressive disorder, single episode, unspecified; K21.9 Gastro-esophageal reflux disease without esophagitis; I10 Essential (primary) hypertension; E03.9 Hypothyroidism, unspecified; D75.9 Disease of blood and blood-forming organs, unspecified; E11.65 Type 2 diabetes mellitus with hyperglycemia

== ENCOUNTER → 2018-04-27 11:41 | Outpatient (CLI) | payer MEDICARE, OTHER ==
[2018-02-15 12:59] VITALS: BMI 25.8
[~2018-04-27 11:41] MED LIST changes: +COUMADIN5 MG PO
== END | disposition home or self-care (01) ==
LOC: D.LABREF 11:41
DX: R31.9 Hematuria, unspecified (principal)

== ENCOUNTER 2018-06-08 06:40 | Day surgery (SDC) | payer MEDICARE, OTHER ==
[2018-06-06 11:43] LABS: HEMATOCRIT 37.6 % (36.0-48.0); MCH 27.7 pg (26.0-34.0); MCHC 31.9 g/dL (31.0-37.0); MCV 86.8 fL (80.0-100.0); MEAN PLATELET VOLUME 10.8 fL (7.4-10.4); RBC 4.33 10x6/uL (4.00-5.40); RDW 13.9 % (11.5-14.5); WBC 4.5 10x3/uL (4.8-10.8)
[2018-06-06 11:49] LABS: ANION GAP 11.2 mmol/L (8-16); CALCIUM 8.6 mg/dL (8.5-10.1); CARBON DIOXIDE 29.6 mmol/L (21.0-32.0); CREATININE - SERUM 1.4 mg/dL (0.6-1.3); POTASSIUM - SERUM 3.8 mmol/L (3.5-5.1)
[2018-06-06 12:16] LABS: APTT 34.9 SECONDS (22.8-39.4)
[2018-06-06 12:17] LABS: INR 1.08 (0.85-1.17); PROTIME 13.5 SECONDS (11.6-15.0)
[~2018-06-08] VITALS: Ht 170.2 cm; Wt 73.0 kg
[~2018-06-08 06:40] MED LIST changes: +COUMADIN4 MG PO; +LOVENOX30 MG/0.3 SC
[2018-06-08 07:44] VITALS: BP 144/73; Ht 170.2 cm; Wt 73.0 kg
--- NOTE | 2018-06-08 10:20 | NUR ---
REC'D FROM SURGERY. FAMILY AT BEDSIDE. ICE WATER GIVEN TO PT.
--- NOTE | 2018-06-08 10:50 | NUR ---
KERA CALLAWAY. AMBULATED TO BATHROOM AND VOIDED WITHOUT DIFFICULTY.
--- NOTE | 2018-06-08 11:20 | NUR ---
TOLERATED FL DIET. VOIDING WITHOUT DIFFICULTY. IV DC'D WITH CATHETER INTACT.
--- NOTE | 2018-06-08 11:50 | NUR ---
WRITTEN AND VERBAL DC INST GIVEN TO PT. VERBALIZED UNDERSTANDING.
--- NOTE | 2018-06-08 11:55 | NUR ---
DC'D HOME WITH FAMILY VIA PRIVATE VEHICLE. TAKEN TO VEHICLE VIA WC. STABLE AT TIME OF DC.
--- NOTE | 2018-06-08 12:07 | OP ---
PATIENT NAME: STEFF MONCADA MEDICAL RECORD: [id number] :38 LOCATION:D.OPS ADMISSION DATE: SURGEON: FABIO VERGARA MD DATE OF OPERATION: 06/08/2018 SURGEON: Fabio Vergara MD ANESTHESIA: TIVA by Rony Mills CRNA DIAGNOSES: Urethral stricture, urge urinary incontinence, interstitial cystitis. PROCEDURES: Urethral dilation to 26-Finnish, cystoscopy, hydrodistention of the bladder, and intravesical Rimso instillation. FINDINGS: Vaginal stenosis with urethral stricture. Diffusely inflamed bladder with glomerulations. No bladder tumors. Single ureteral orifices bilaterally. SPECIMENS: None. BLOOD LOSS: None. CLINICAL HISTORY: This is a 77-year-old female, A0, who has a complaint of slow urinary flow and difficulty voiding. She feels she is not completely emptying her bladder. She has nocturia times 1 with no daytime urinary frequency. She has urge urinary incontinence. She had 2 episodes of urinary tract infection symptoms last year. She does not have any stress incontinence. She has previously had a hysterectomy 40 years ago. When we checked her in the office, her urinalysis showed small microhematuria. Postvoid residual was 0. She comes today to have cystoscopy for the microhematuria as well as urethral stricture dilation. SHE IS ALLERGIC TO SULFA. She was given Ancef on-call to the OR. DESCRIPTION OF PROCEDURE: The patient was given IV sedation. She was then placed in the dorsal lithotomy position and prepped and draped. The urethral stricture is such that I did not think even a 17-Finnish scope could enter in on its own. Therefore, starting at 14-Finnish and working our way up with female sounds, we dilated the urethra up to 26-Finnish. The cystoscope was then placed. No bladder tumors were seen and she had single ureteral orifices on each side. However, the bladder was quite inflamed and there were glomerulations visible. This was consistent with interstitial cystitis and that might be the cause of her urge urinary incontinence. Therefore, I performed hydrodistention with a bladder volume of 500 mL, held for 1 minute. The bladder was then emptied through the cystoscope sheath. A 16-Finnish red rubber catheter was inserted into the bladder and 50 mL of Rimso solution was instilled into the bladder. The red rubber catheter was then removed entirely. The patient will hold the medication in for 15 minutes and then void it out. She will be seen in followup in 2 weeks' time in case she needs second treatment of Rimso. TRANSINT:[id number] Voice Confirmation ID: [id number] DOCUMENT ID: [id number] OPERATIVE REPORT [id number] STEFF MONCADA ROBERT S MD at 1207 CC: [id number] DICTATION DATE: 06/08/18 1021 ANGIOGRAPHER: 06/08/18 1[address] [place] [id number] [place] [address]
== END 2018-06-08 11:55 | disposition home or self-care (01) ==
LOC: D.OPS 06:40 → D.PAN 13:45
PROVIDERS: Anesthesiology
DX: N35.92 Unspecified urethral stricture, female (principal); N39.41 Urge incontinence; N30.10 Interstitial cystitis (chronic) without hematuria; N89.5 Stricture and atresia of vagina; Z01.812 Encounter for preprocedural laboratory examination; Z88.2 Allergy status to sulfonamides

== ENCOUNTER → 2018-07-25 09:32 | Outpatient (CLI) | payer MEDICARE, OTHER ==
[2018-06-08 07:44] VITALS: BMI 25.2
== END | disposition home or self-care (01) ==
LOC: D.CT 09:32
PROVIDERS: ATTEND Urology
DX: R91.1 Solitary pulmonary nodule (principal)